=== PATIENT | female | born 1965 | race Caucasian/White ===

== ENCOUNTER → 2017-02-27 | Outpatient (CLI) | payer MEDICARE ==
[~2017-02-27] MED LIST: ALIGN4 MG PO; ARIPIPRAZOLE10 MG PO; ASPIRIN LO-DOSE81 MG PO; CALAN SR GENER120 MG PO; DIETHYLPROPION75 MG PO; DIFLUCAN150 MG PO; DIOVAN80 MG PO; FLONASE 50 MCG/16 GM NOSE; GLUCOPHAGE XR500 M1 PO; KLONOPIN1 MG PO; LANTUS100 UNIT/1 SUB-Q; LASIX40 MG PO; LEVOTHROID (SY88 MCG PO; LIPITOR80 MG PO; MAG-OX-400(241400 MG PO; NOVOLOG100 UNIT/M SUB-Q; OXCARBAZEPINE300 MG PO; QUETIAPINE FUMA50 MG PO; TRANDATE OR NO100 MG PO; VALSARTAN-HCTZ1 EAC1 PO; ZOLOFT100 MG PO; ZYLOPRIM300 MG PO; [UNRECOGNIZED DRUG - REMARK]
--- NOTE | ~2017-02-27 | ESTC ---
Cardiac Perfusion Imaging Demographics Patient Name SEGUNDO Tirado Gender Female Patient Number [id number] Race Visit Number [id number] Ethnicity Corporate ID Room Number Accession Number [id number] Height Date of 1965 Weight Age 52 year(s) BSA Referring Physician Mae Eisenberg BMI MD Brody Viveros MD Interpreting Mae Eisenberg Date of study 02/27/2017 Physician Supervising /MLP NM Technologist Burke Morales Ordering Physician Mae Eisenberg Stress Saeid Viveros MD financial services technician Giancarlo Torre RDCS, RVT Stress ECG Reading Mae Eisenberg Nurse Moe Cruz Physician Procedure Procedure Type: Nuclear Stress Test:Exercise, Cardiolite Stress Test Procedure Start time: 02/27/2017 08:30 Indications: Shortness of breath. Risk Factors The patient risk factors include:obesity, treated hypercholesterolemia, treated hypertension, insulin treated diabetes mellitus and dyslipidemia. Conclusions Summary No TID. Medium sized area of ischemia of moderate degree involving the inferior wall. Normal EF and WM. Stress Protocols Resting ECG RSR. Pre-stress physical exam: Un changed. Stress Protocol:Exercise Peak HR:140 bpm HR/BP product:72991 Peak BP:218/103 mmHg Predicted HR: 168 bpm % of predicted HR: 83 Test duration:05:00 min Reason for termination:Target heart rate ECG Findings No ECG changes suggestive of ischemia. Arrhythmias No rhythm abnormality. Stress Interpretation She had a little chest pain towards the last 30 seconds on the treadmill that lasted 30seconds into recovery. Reason for termination:Fatigue and SOB. DTS:1.(Moderate risk) Imaging Results Applied corrections - Motion correction applied High risk findings Summed scores - Summed stress score: 12 - Summed rest score: 0 - Summed difference score: 12 Stress ejection Ejection fraction:74 % EDV :68 ml ESV :18 ml Stroke volume :50 ml LV mass :110 gr LV size:Normal Normal LV function Imaging Protocols Rest Stress Isotope:Tc99m Sestamibi IV Isotope: Tc99m Sestamibi IV Isotope dose:14.6 mCi Isotope dose:929 mCi Date:02/27/2017 07:01 Date:02/27/2017 09:29 Technique: SPECT Technique: Gated Supine SPECT Supine Scan Time:45-60 minutes post Scan Time:45-60 minutes post injection injection Medical History Admission Data Admission date: 02/27/2017 Admission Time: 06:47 Hospital Status: Outpatient. Signatures dtt: Faina Wall dtd: 02/27/17 0830 Physician Self Edit
== END | disposition disaster alternative care site (69) ==
LOC: GRAD 06:47
DX: R06.02 Shortness of breath (principal); E11.9 Type 2 diabetes mellitus without complications
CPT/HCPCS: A9500

== ENCOUNTER 2017-03-11 10:56 | Outpatient (CLI) | payer MEDICARE ==
[~2017-03-11] VITALS: Ht 160 cm; Wt 109.9 kg
--- NOTE | ~2017-03-11 | CATH ---
Cardiac Diagnostic Report Demographics Patient Name SEGUNDO Tirado Gender Female Date of 1965 Age 52 year(s) Patient Number [id number] Date of Study 03/11/2017 Visit Number [id number] Room Number G63[address] [place] [id number] Ht 160.02 cm Wt 109.1 kg Referring Brody Viveros MD Primary Physician Physician Performing Mae Secondary Physician Physician Faina ADAM Diagnostic Mae Assisting Physician Physician Faina ADAM Interventional Physician Station Captain Physician Findings and Conclusions Diagnostic Findings and Conclusion LVEDP 34 Luminal Irregularities Diagnostic Recommendations Medical Therapy. Procedure Description The patient was brought to the diagnostic cardiac catheterization-EP laboratory in the fasting, non-sedated state. Informed consent was obtained in the written and verbal form after the risks and benefits were explained. The patient had no further questions and agreed to proceed. The planned puncture-incision site(s) were shaved and prepped with ChloraPrep and draped in the usual sterile manner. Conscious sedation, supplemental oxygen, and pain control medications were delivered by a registered nurse under physician guidance. Surface ECG rhythm, blood pressure measurement, and pulse oximetry were monitored throughout the procedure. Arterial access. The access site was infiltrated with lidocaine. The vessel was entered with the Seldinger technique. A sheath was advanced into the vessel and used for catheter placement. Selective left coronary angiography. A catheter was advanced into the left coronary vessel ostium under Fluoroscopic guidance. Contrast was injected by hand. Images were obtained in multiple projections. Selective right coronary angiography. A catheter was advanced into the right coronary vessel ostium under fluoroscopic guidance. Contrast was injected by hand. Images were obtained in multiple projections. Left heart catheterization. A catheter was advanced across the aortic valve to the left ventricle under fluoroscopic guidance. Resting hemodynamics were obtained. Arterial artery hemostasis was achieved. The patient was transferred to a regular nursing floor via cart accompanied by a nurse. The patient left the laboratory in stable condition. Diagnostic Cath Status: Elective Procedure Procedure Type Diagnostic procedure:Angiography:, Coronary Angios w/[facility] Indications: Positive nuclear perfusion study and Shortness of breath. The procedure was explained in detail to the patient. Risks, complications and alternative treatments were reviewed. Written consent was obtained. Medications Reviewed with Patient prior to Procedure. Angiographic Findings Dominance: Right Cardiac Arteries and Lesion Findings LMCA: Abnormal.Luminal irregularities LAD: Normal (0% Stenosis).Type I The 1st Diag is a small caliber vessel. The 2nd Diag is a small caliber vessel. LCx: Abnormal.Luminal irregularities RCA: Abnormal.Luminal irregularities Procedure Data Procedure Date Date: 03/11/2017Start: 01:20 PMEnd: 01:52 PM Entry Locations - Retrograde Percutaneous access was performed through the Right Femoral artery (Primary location). A 7 Fr sheath was inserted. Hemostasis was successfully obtained using Perclose ProGlide ([place]). Closure Comments: closure done by Eulalio. Procedure Medications Order and Administration + + + + + !Time !Medication !Dosage !Route ! + + + + + 03/11/2017 01:13 PM !Versed !1 mg !I.V. ! + + + + + 03/11/2017 01:16 PM !Fentanyl !25 mcg !I.V. ! + + + + + 03/11/2017 01:19 PM !Versed !1 mg !I.V. ! + + + + + !03/11/2017 01:19 PM !0.9% NaCl !20 ml/hr !I.V. drip ! + + + + + !03/11/2017 01:22 PM !Fentanyl !25 mcg !I.V. ! + + + + + !03/11/2017 01:27 PM !Oxygen !2 l/min !NC ! + + + + + Devices Used - A6 Fr. BS JR 4 Diag. Catheterwas used for:Right coronary angiography. - A6 Fr. BS JL 4 Diag. Catheterwas used for:Left coronary angiography. - A6 Fr. BS JL 3.5 Diag. Catheterwas used for:Was not used. Contrast Material - Isovue 62371 ml Fluoroscopy Time: Diagnostic: 3:30 minutes. Total: 3:30 minutes. Fluoroscopy Dose: Diagnostic: 987 mGy. Total: 987 mGy. Estimated Blood Loss: 25 ml. Medical History Performed Procedures and Imaging Results - Stress testing with SPECT MPIwas performed. Results were: Positive. Risk/Extent of ischemia was: Unavailable. Allergies - Penicillin. - Other:(lansoprazole, doxycycline, sporonolactone, proton pump inhibitors). Risk Factors The patient risk factors include:hypertension, insulin-treated diabetes mellitus and dyslipidemia. Admission Data Admission Date: 03/11/2017 Admission Time: 10:56 AM Admit Source: Other Insurance Payors: Medicare. Admission Medications + +------+------+ + + + + !Medication !Dosage!Times !Last !Last !Administered !Comments ! ! ! !Per !Delivery !Delivery ! ! ! ! ! !Day !Date !Time ! ! ! + +------+------+ + + + + !Beta ! ! ! ! !Yes ! ! !Ceasar ! ! ! ! ! ! ! !(any) ! ! ! ! ! ! ! + +------+------+ + + + + !Statin ! ! ! ! !Yes ! ! !(any) ! ! ! ! ! ! ! + +------+------+ + + + + Clinical Evaluation Leading to Procedure - There were no CAD presentation symptoms. - There were no anginal symptoms. Anti-anginal medications were prescribed during the past two weeks. The medication is: Beta Blockers. - The patient has been in a state of heart failure within the past two weeks. - The patient's heart failure status was assessed as NYHA Class III, with CHF symptoms of HAN. Hemodynamics Condition: Rest O2 Consumption: Estimated: 211.28Heart Rate: 80 bpm Pressures (mmHg) +-----+ + !Site !Pressure ! +-----+ + !LV !191/12 ,33 ! +-----+ + !LV !191/12 ,34 ! +-----+ + !AO !187/87 (130) ! +-----+ + !LV !189/12 ,30 ! +-----+ + !AO !191/89 (131) ! +-----+ + Valve Gradients and Areas + +---------+---------+---------+ +---------+ + !Valve !Peak !Mean !Area !Index !Flow !Source ! + +---------+---------+---------+ +---------+ + !Aortic !2 !0 ! ! ! ! ! + +---------+---------+---------+ +---------+ + !Aortic !2 !0 ! ! ! ! ! + +---------+---------+---------+ +---------+ + Shunts Oxygen Values O2 Consumption 211.28 Discharge Data Discharge Date: 03/11/2017 Hospital Status: Outpatient Signatures dtt: Faina Wall dtd: 03/11/17 1320 Physician Self Edit
[~2017-03-11 10:56] MED LIST changes: -ASPIRIN LO-DOSE81 MG PO; -CALAN SR GENER120 MG PO; -DIFLUCAN150 MG PO; -DIOVAN80 MG PO; -MAG-OX-400(241400 MG PO; -ZYLOPRIM300 MG PO; -[UNRECOGNIZED DRUG - REMARK]
[2017-03-11] MEDS ORDERED: ASPIRIN LO-DOSE81 MG PO (14:09)
[2017-03-11] MEDS ORDERED: CALAN SR GENER120 MG PO (14:10)
--- NOTE | 2017-03-11 20:30 | NUR ---
PATIENT DISMISSED VIA WHEEL CHAIR TO AWAITING PICKUP ACCOMPANIED BY MYSELF AND I ASSISTED PATIENT INTO VEHICLE. DISMISSAL INSTRUCTIONS AND MEDICATIONS WERE REVIEWED WITH PATIENT AND HER WITH STATED UNDERSTANDING. VITALS STABLE. REINFORCED CARE FOR GROIN AFTER HEART CATH AND WHAT TO DO IF SIGHT STARTS TO BLEED.
== END 2017-03-11 16:34 | disposition disaster alternative care site (69) ==
LOC: GPCU 10:56 → GCAT 10:56 → GPOC 11:00 → GCAT 16:34
DX: R06.02 Shortness of breath (principal); R94.39 Abnormal result of other cardiovascular function study; I10 Essential (primary) hypertension; E11.9 Type 2 diabetes mellitus without complications; E78.5 Hyperlipidemia, unspecified; Z79.4 Long term (current) use of insulin; Z79.899 Other long term (current) drug therapy
CPT/HCPCS: C1760; C1894; J1644; J2250; J3010; J7030; J7060

== ENCOUNTER 2017-07-26 17:30 | Inpatient (IN) | payer MEDICARE ==
[~2017-07-26] VITALS: Ht 160 cm; Wt 115.3 kg
--- NOTE | ~2017-07-26 | ECHO ---
Transthoracic Echocardiography Report (TTE) Demographics Patient Name LUH RAYMOND Date of Study 07/29/2017 Patient Number [id number] Visit Number [id number] Date of 1965 Room Number G3317 Accession Number [id number] Gender Female Age 52 year(s) Referring Ze Rico BUTCHERETTE Lining Caser Sarahi Solorio RVT, Physician RDCS Physician Interpreting Misael Aceves Cover Creaser Physician MD Supervising Ordering Physician Alli Julien MD/MLP Nurse Stress Bulk Sealer Operator Conclusions Contractility Score Summary Normal Left Ventricular contractility was noted. Summary Technically difficult exam. Normal LV/RV size and systolic function. The estimated left ventricular ejection fraction is 55-60%. Mild concentric left ventricular hypertrophy. Diastolic flow assessment reveals a pseudonormal pattern consistent with Grade II diastolic dysfunction . The left atrium is mildly dilated. Dilated IVC with poor inspiratory collapse consistent with elevated RA pressure. There is mild pulmonary hypertension. The pulmonary pressure (RVSP) is 44 mmHg. Small posterior pericardial effusion. Procedure Type of Study TTE procedure:2D Echocardiogram. Procedure Date Date: 07/29/2017 Start: 08:48 AM Study Location: Inpatient Portable Technical Quality: Adequate visualization Indications:Shortness of breath. Appropriate Use Criteria: 8 Patient Status: Routine Rhythm: NSR HR: 79 bpm BP: 163/73 mmHg Allergies - Penicillin. - Other:(lansoprazole, doxycycline, sporonolactone, proton pump inhibitors). M-Mode/2D Measurements LV Diastolic Dimension: 3.89 cm LV Systolic Dimension: 3.44 cm LV Septum Diastolic: 1.33 cm LV PW Diastolic: 1.28 cm AO Root Dimension: 2.2 cm Cardiac Output: 6.47 l/min LA Dimension: 4.3 cm EF Estimated: 55 % LVOT: 2 cm LVOT VTI: 26.1 cm RV Base: 3.41 cm LV Stroke volume: 81.95 ml RV Length: 6.68 cm TAPSE: 2.69 cm TDI-S': 13.4 cm/s Doppler Measurements AV Peak Velocity: 1.69 m/s MV Peak E-Wave: 1.27 m/s AV Peak Gradient: 11.42 mmHg MV Peak A-Wave: 0.56 m/s AV Mean Gradient: 7 mmHg MV E/A Ratio: 2.26 LVOT Peak Velocity: 1.28 m/s MV P1/2t: 43 msec TR Gradient:35.76 mmHg PV Peak Velocity: 1.02 m/s Estimated RAP:8 mmHg PV Peak Gradient: 4.16 mmHg Estimated RVSP: 44 mmHg Estimated PASP: 43.76 mmHg E' Septal Velocity: 0.1 m/s A' Septal Velocity: 0.06 m/s E' Lateral Velocity: 0.12 m/s A' Lateral Velocity: 0.09 m/s Findings Left Ventricle Mild concentric left ventricular hypertrophy. Diastolic assessment reveals Grade II pseudonormal diastolic function . Right Ventricle Normal right ventricle structure and function. Left Atrium The left atrium is mildly dilated. There is no evidence of patent foramen ovale or atrial septal defect by color Doppler. Right Atrium Normal right atrial size. Dilated IVC with poor inspiratory collapse consistent with elevated RA pressure. Mitral Valve Trivial mitral regurgitation by color Doppler. Mild mitral annular calcification. Mild thickening of the mitral valve leaflets. Aortic Valve Normal aortic valve structure and function. Tricuspid Valve Trivial tricuspid regurgitation by color Doppler. There is mild pulmonary hypertension. The pulmonary pressure (RVSP) is 44 mmHg. Pulmonic Valve Normal pulmonic valve structure and function. Pericardial Effusion Small posterior pericardial effusion. Miscellaneous Visualized portions of the aortic root and ascending aorta appear normal in size. Pleural Effusion No evidence of pleural effusion. Contractility Score LV regional wall motion:(0-Non visualized 1-Normal 2-Hypokinesis 3-Akinesis 4-Dyskinesis 5-Aneurysm) Signature dtt: PATTIE WHITE: 07/29/17 0848 Physician Self Edit
--- NOTE | ~2017-07-26 | DS ---
PATIENT'S NAME: LUH RAYMOND [facility] AGE: 52 Y [address] ROOM: [place] [address] LOCATION: [facility] ADMIT DATE: 07/26/2017 Discharge Summary DISCHARGE DATE: FAMILY PHYSICIAN: Physician, Unknown ATTENDING PHYSICIAN: Jacky Kunz PRINCIPAL DIAGNOSES: 1. Acute kidney injury. 2. Aspiration pneumonia. 3. Volume overload. 4. Type 2 diabetes. 5. Morbid obesity. HOSPITAL COURSE: Please refer to the admitting history and physical for details of history on initial presentation. This is a 52-year-old female, who was transferred from [place] for evaluation of worsening renal failure. The patient apparently presented at [place] with gastroenteritis type symptoms and was given plenty of volume resuscitation. Despite this, she was noted to have worsening kidney function, and then was transferred for workup of her renal failure. On presentation, the patient was noted to be significantly volume overloaded with significant weight gain and clinical indicators suggesting volume overload and was given IV Lasix with good diuresis, and subsequently kidney function improved from 2 and it is down to 1.2 today, and the patient is making good urine. The patient was also diagnosed with aspiration pneumonia, which was related to her nausea and vomiting that led to her initial presentation. The patient is doing well from that standpoint, and she needs to finish her antibiotics course with Levaquin going forward. PHYSICAL EXAMINATION: GENERAL: The patient during my evaluation today is awake, alert, and oriented x3, in no acute distress. HEART: S1 and S2. Regular rate and rhythm. ABDOMEN: Soft, nontender, nondistended. CHEST: Clear to auscultation bilaterally. NEURO: Grossly nonfocal. MEDICATIONS: Per MAR includin. Levaquin 750 mg p.o. daily for 6 more days. 2. She is to continue p.o. Lasix 40 mg daily. DISPOSITION: Home. FOLLOWUP: She will follow up with her primary care physician in 3 to 5 days and will have repeat renal panel at that time. Less than 30 minutes were spent in discharge planning and facilitating. PATIENT'S NAME: LUH RAYMOND [facility] AGE: 52 Y [address] ROOM: [place] [address] LOCATION: [facility]3N ADMIT DATE: 07/26/2017 Discharge Summary DISCHARGE DATE: FAMILY PHYSICIAN: Cassie Soto ATTENDING PHYSICIAN: Jacky Kunz JETHROOT MD SHADY VILLANUEVA/vazquez /[id number] d: 07/29/17 0244 t: 07/31/17 1401, DISCHARGE SUMMARY
--- NOTE | ~2017-07-26 | HP ---
PATIENT'S NAME: LUH RAYMOND [facility] AGE: 52 Y [address] ROOM: [id number] [place], [place] [address] LOCATION: G3N ADMIT DATE: 07/26/2017 History & Physical DISCHARGE DATE: FAMILY PHYSICIAN: PHYSICIAN, UNKNOWN ATTENDING PHYSICIAN: ROSA BROWN DATE OF SERVICE: 07/26/2017 CHIEF COMPLAINT: Acute renal failure, transferred from [place], [place]. HISTORY OF PRESENT ILLNESS: This is a very pleasant 52-year-old female with past medical history of insulin-dependent diabetes complicated by neuropathy and probable nephropathy, also with morbid obesity and question of possible congestive heart failure, who presented on July 23 to [facility] with a chief complaint then of "dehydration." The patient had noted recent nausea, vomiting, abdominal pain, and decreased oral intake and noted a presyncopal spell versus syncopal spell. History on this is un clear just prior to her presentation to the outside hospital. In addition, she had noted a recent cough and workup showed pneumonia, which was classified at the outside hospital as an aspiration pneumonia and the patient was started on Levaquin. She did well initially. However, throughout the course of her stay in spite of IV fluid rehydration, her creatinine went from 0.9 to as high as 2.3, now down to 1.8, however, given the difficulty with this and failure to improve with fluids, it was felt best to transfer the patient to [facility]. The patient notes that her nausea, vomiting, and abdominal pain are much improved as is her cough. She denies any recent fevers including prior to her presentation, also without any chills, chest pain, ongoing shortness of breath, abdominal pain, dysuria, or bowel concerns. She does note that she had struggled to urinate over the last 1 to 2 days, prompting straight cath initially and subsequently Ardon placement for urinary retention. Just prior to transfer, labs were notable for concerning potassium of 5.7 up from 4.7 yesterday, creatinine of 1.8 up from 1.6 yesterday with BUN of 40, and the patient was discussed with Dr. Mo by Dr. Skinner in [place] and it was suggested to give the patient bicarb and D5 half-normal saline and as this did not improve creatinine, transfer was prompted. The patient, as stated above, denies any new concerning complaints now aside from progressive upper and lower extremity pronounced edema bilaterally as well as new oxygen requirement of 1 to 2 L. PAST MEDICAL HISTORY: 1. Insulin-dependent diabetes type 2. Follows with Endocrinology. 2. Neuropathy secondary to diabetes. 3. CKD secondary to diabetes. 4. Recurrent UTIs in the past. PATIENT'S NAME: LUH RAYMOND [facility] AGE: 52 Y [address] ROOM: [place] [address] LOCATION: [facility] ADMIT DATE: 07/26/2017 History & Physical DISCHARGE DATE: FAMILY PHYSICIAN: PHYSICIAN, UNKNOWN ATTENDING PHYSICIAN: ROSA BROWN 5. Bipolar disorder. 6. Morbid obesity. 7. Chronic lower extremity edema. Prior to of all this, follows with Dr. Hart 8. Hypothyroidism. 9. History of coronary artery disease by review of chart, though heart catheterization in March of this year does not appear to show significant residual disease. 10. History of gout. PAST SURGICAL HISTORY: History of cholecystectomy several years ago. FAMILY HISTORY: Father had "kidney troubles" and was placed on HD for some period of time, still living at this point. SOCIAL HISTORY: The patient denies any alcohol, tobacco, or illicit drug use. ALLERGIES: THE PATIENT NOTES THAT PENICILLINS AND DOXYCYCLINE INDUCED A RASH AND PRILOSEC INDUCES VAGUE GI DISCOMFORT. MEDICATIONS: 1. Just prior to transfer, the patient was transitioned from Levaquin to Rocephin given concern that Levaquin may be inciting some of her acute kidney injury. 2. Zoloft. 3. Abilify. 4. Seroquel. 5. Trileptal. 6. Aspirin. 7. Allopurinol. 8. Valsartan. 9. Labetalol. 10. Lantus 60 units b.i.d. 11. Lipitor. 12. Lasix. 13. Metformin. 14. Synthroid. 15. Verapamil. REVIEW OF SYSTEMS: Complete review of systems was able to be performed and is negative except as noted above in the HPI. PATIENT'S NAME: LUH RAYMOND [facility] AGE: 52 Y [address] ROOM: [place] [address] LOCATION: [facility] ADMIT DATE: 07/26/2017 History & Physical DISCHARGE DATE: FAMILY PHYSICIAN: PHYSICIAN, UNKNOWN ATTENDING PHYSICIAN: ROSA BROWN PHYSICAL EXAMINATION: VITAL SIGNS: The patient is afebrile with pulse in the 80s, blood pressure 140 systolic, respirations 20, and saturating well on 1 to 2 L of oxygen via nasal cannula. GENERAL: The patient is lying comfortably in bed, in no acute distress. HEENT: Head: Normocephalic and atraumatic with nasal cannula oxygen in place. Eyes: Pupils equal, round, and reactive to light. Extraocular muscles intact. No scleral icterus. No conjunctival injection. ENT: Mucous membranes are moist. No nasal discharge appreciated. NECK: Supple. JVD not assessable due to neck size. No thyromegaly appreciated nor is there any lymphadenopathy. CARDIOVASCULAR: Regular rate and rhythm without murmurs appreciable though the heart sounds are distant with 2+ pulses bilaterally in the upper and lower extremities. RESPIRATIONS: Lungs with bibasilar rhonchi, otherwise clear with normal respiratory effort requiring as mentioned oxygen via nasal cannula. ABDOMEN: Morbidly obese, soft, and nontender without suprapubic tenderness or CVA tenderness. : Ardon catheter in place. EXTREMITIES: 2+ pitting edema bilaterally in the upper and lower extremities. SKIN: Without appreciable lesions. NEUROLOGIC: The patient is alert and oriented x3. Pleasant and conversive. PSYCH: Normal mood and affect currently. LABS AND IMAGING: Currently pending here are labs which were ordered upon the patient's arrival. However, outside labs note CBC, white count 6.1, hemoglobin 11.1, and platelets 128. BMP: Sodium 140, potassium 5.7, bicarb 24, BUN 40, and creatinine 1.8. Troponin negative. EKG reportedly without changes of hyperkalemia. Remainder of LFT panel was normal. ASSESSMENT: 1. Acute renal failure. 2. Acute hypoxic respiratory failure. 3. Volume overload. 4. Insulin-dependent diabetes type 2. 5. Recent reported aspiration pneumonia by chest x-ray. 6. Recent gastroenteritis, resolved. 7. Hypothyroidism. 8. Bipolar disorder. PLAN: We will admit the patient to inpatient status with telemetry. As the patient PATIENT'S NAME: LUH RAYMOND [facility] AGE: 52 Y [address] ROOM: [address] [place], [place] [address] LOCATION: [facility] ADMIT DATE: 07/26/2017 History & Physical DISCHARGE DATE: FAMILY PHYSICIAN: PHYSICIAN, UNKNOWN ATTENDING PHYSICIAN: ROSA BROWN is grossly volume overloaded on exam, we will, in spite of acute renal failure, diurese with 60 of IV Lasix tonight and monitor response, maintaining Ardon in place for accurate I's and O's. Given the patient's history of allergic reactions to penicillins and doxycycline and the concern that potentially there may be an acute interstitial nephritis as a component of her ZACHARY, we will discontinue Rocephin and revert to previously used Levaquin renally dosed per pharmacy. This will be to complete a five-day course for community-acquired pneumonia. Today is day four. We will hold nephrotoxic medications to include valsartan, metformin, allopurinol, and verapamil. We will check chest x-ray now to assess for additional fluid as well as to assess the degree of previously diagnosed pneumonia as the patient was with mild symptoms and without fevers throughout this time. With regard to her diabetes, we will continue her home insulin and hold metformin as mentioned above. With regard to her bipolar disorder, we will continue Zoloft, Abilify, Seroquel, and Trileptal. We will add on urine studies to further evaluate including UA, urine urea, urine creatinine, and urine eosinophils and we will await repeat labs on arrival here to determine need for intervention upon possible recurrent hyperkalemia. I have also ordered an EKG to further evaluate this. The patient is a full code. DVT prophylaxis. We will use heparin 5000 subcu t.i.d. in the setting of acute renal failure. DISPOSITION: We will admit and monitor progress. Consider renal consultation should the patient fail to improve. Also consider transthoracic echocardiogram, though at this point would expect to be abnormal secondary to volume overload. I spent 35 minutes on date of admission, reviewing the outside medical records as well as [id number] time with the patient. MD DMITRIY COLLINS/modl /[id number] D: [id number] T: [id number] HISTORY & PHYSICAL
--- NOTE | ~2017-07-26 | DS ---
PATIENT'S NAME: LUH RAYMOND [facility] AGE: 52 Y [address] ROOM: [place] [address] LOCATION: G3N ADMIT DATE: 07/26/2017 Discharge Summary DISCHARGE DATE: 07/30/2017 FAMILY PHYSICIAN: Sandeep Skinner MD ATTENDING PHYSICIAN: Jacky Kunz PRINCIPAL DISCHARGE DIAGNOSIS: Acute kidney injury. SECONDARY DIAGNOSES: 1. Aspiration pneumonia. 2. Diabetes mellitus type 2, uncontrolled. 3. Hyperglycemia. 4. Hypomagnesemia. 5. Morbid obesity. 6. Grade 2 diastolic dysfunction. 7. Diastolic heart failure. 8. Mild pulmonary hypertension with right ventricular systolic pressure of 44 mmHg. 9. Hypothyroidism with normal TSH of 2.13 on the day of discharge. 10. Hypercholesterolemia. CONSULTATIONS: None. PROCEDURES: Echocardiogram. BRIEF SUMMARY OF RESULTS: Technically difficult exam, estimated left ventricular ejection fraction 55% to 60%. There is mild concentric left ventricular hypertrophy and grade 2 diastolic dysfunction, pseudonormal pattern. Left atrium mildly dilated and dilated IVC with poor inspiratory collapse consistent with elevated right atrial pressures, mild pulmonary hypertension with right systolic ventricular pressure of 44 mmHg. Small posterior pericardial effusion. BRIEF SUMMARY: Ms. Raymond is a 52-year-old female who has insulin- dependent diabetes mellitus complicated by nephropathy. The patient had developed acute illness with nausea, vomiting, abdominal pain. She reportedly was presyncopal. In addition, she was coughing. She was being treated for aspiration pneumonia in outlying hospital. She developed a creatinine which went from a baseline 0.9 to 2.3 and was down to 1.8 on admission to our hospital. She was transferred here for more evaluation and treatment. She had an episode of hypoglycemia on the 07/26/2017 and her insulin was held except for sliding scale. She has become more hyperglycemic since then. We obtained hemoglobin A1c which showed that it was 8.4 which indicates an average glucose of 194. In this past 24 hours, her glucoses have been above PATIENT'S NAME: LUH RAYMOND [facility] AGE: 52 Y [address] ROOM: [place] [address] LOCATION: G3N ADMIT DATE: 07/26/2017 Discharge Summary DISCHARGE DATE: 07/30/2017 FAMILY PHYSICIAN: Sandeep Skinner MD ATTENDING PHYSICIAN: Jacky Kunz 300. Resume a dose of basal insulin now and put her on her home insulin regimen at discharge and refer her to an wireless architect. There is 1 in [place] if she would be able to see her. The echocardiogram showed diastolic dysfunction and mild pulmonary hypertension. We are suspecting obesity, hypoventilation versus obstructive sleep apnea. A trend ox last night showed significant hypoxia with greater than 50% of the time saturation being below 89% and greater than 86% at the time, it was less than 90% of SpO2. She will be sent home on liter of oxygen per nasal cannula for 24 hours and increasing that to 2 L with ambulation as she also was noted to be hypoxic with ambulatory pulse ox testing this morning. She will be sent to see Dr. Pisano for pulmonary evaluation which will likely include PFTs and we will try to schedule her for sleep study prior to discharge. INSTRUCTIONS AT DISCHARGE: 1. Low-sodium diet, diabetic diet. 2. Walk as tolerated. She should walk at least 15 minutes in the morning and in the p.m. as well. 3. Followup appointment with her PCP in the next 3 to 5 days. I will give her referral to go to see Jyothi Moreno, [facility] for diabetes management and appointment with Dr. Pisano as above. MEDICATIONS AT DISCHARGE: 1. Clonazepam 1 mg at bedtime. 2. Oxcarbazepine 300 mg p.o. b.i.d. 3. Lasix 40 mg q.a.m. 4. Insulin glargine 60 units subcu b.i.d. 5. NovoLog 25 units subcu with breakfast and noon meal. 6. NovoLog 30 units subcu with her evening meal. 7. Labetalol 100 mg p.o. b.i.d. 8. Levothyroxine 88 mcg p.o. daily on an empty stomach. 9. Quetiapine 50 mg at bedtime. 10. Zoloft 150 mg p.o. daily. 11. Verapamil 120 mg p.o. daily. 12. Aripiprazole 10 mg p.o. daily. 13. Aspirin 81 mg p.o. daily. 14. Lipitor p.o. at bedtime. 15. Align 4 mg p.o. daily, do not take as the same time as Levaquin. 16. She is instructed to hold her metformin until she speaks to her PCP. 17. Flonase daily. 18. Allopurinol, dose reduced to 300 mg p.o. every other day. 19. Fluconazole 150 mg p.r.n. weekly for yeast infection. PATIENT'S NAME: L[facility] RAYMOND [facility] AGE: 52 Y [address] ROOM: [place] [address] LOCATION: [facility] ADMIT DATE: 07/26/2017 Discharge Summary DISCHARGE DATE: 07/30/2017 FAMILY PHYSICIAN: Sandeep Skinner MD ATTENDING PHYSICIAN: Jacky Kunz 20. Diovan 80 mg p.o. daily. CONDITION AT DISCHARGE: Good. Time spent is greater than 30 minutes in the discharge process. CYNDI GUERIN MD LM/vazquez /[id number] d: 07/31/17 0751 t: 08/05/17 1829, DISCHARGE SUMMARY
--- NOTE | ~2017-07-26 | PUL ---
PATIENT'S NAME: LUH RAYMOND [facility] AGE: 52 Y [address] ROOM: [address] [address] LOCATION: G3N ADMIT DATE: 07/26/2017 Pulmonary DISCHARGE DATE: 07/30/2017 FAMILY PHYSICIAN: Sandeep Skinner MD ATTENDING PHYSICIAN: Jacky Kunz NAME OF PROCEDURE: Overnight Pulse Oximetry DATE OF PROCEDURE: July 29, 2017 REASON FOR PROCEDURE: Nocturnal hypoxemia RESULTS: The test was started on room air, later 1 liter oxygen was supplemented. The recording time was 7 hours, 2 minutes, and 16 seconds, with a total valid sampling time of 7 hours, 2 minutes, and 16 seconds. The highest pulse was 76, lowest pulse was 62, with a mean pulse of 66. The highest SpO2 was 92%, lowest SpO2 was 77%, with a mean SpO2 of 87.9%. The three longest continuous times with saturation below 88% where 20 minutes and 44 seconds, 14 minutes and 44 seconds, and 12 minutes and 20 seconds. The desaturation event index was 8.5. PHYSICIAN INTERPRETATION: The patient has evidence of significant nocturnal hypoxia and would qualify for supplemental oxygen as per Medicare criteria. However because of the severity of the nocturnal hypoxia we would recommended sleep study at this time. MD SHAE SANCHES/rich /[id number] dtt: 08/01/17 1731 REMI MEENAKSHI dtd: 07/31/17 1225
[~2017-07-26 17:30] MED LIST changes: +ASPIRIN LO-DOSE81 MG PO; +CALAN SR GENER120 MG PO
--- NOTE | 2017-07-26 18:59 | NUR ---
Pt has not been feeling well. Her took her to the [facility], operated by [facility] because of it. She there had urinary retention. She said since she has been there (Saturday) she has gained 22 lbs. They transferred her to [place].
[2017-07-26 19:00] LABS: BILIRUBIN URINE NEGATIVE (NEGATIVE); BLOOD URINE 150 /UL (NEGATIVE); COLOR URINE YELLOW (YELLOW); GLUCOSE URINE NEGATIVE (NEGATIVE); KETONE URINE NEGATIVE (NEGATIVE); LEUKOCYTES URINE 25 /UL (NEGATIVE); NITRITE URINE NEGATIVE (NEGATIVE); PROTEIN URINE 15 mg/dL (NEGATIVE); SPEC GRAVITY URINE 1.015 (1.003-1.035); TURBIDITY URINE CLEAR (CLEAR); UROBILINOGEN URINE NORMAL (NORMAL)
--- NOTE | 2017-07-26 19:11 | NUR ---
Significant Event: Admit at 1750. Ambulates with one assist and gaitbelt. Ardon patent, bag changed. Denies pain. Edema to all extremeties. IV to R) AC saline locked. Follow up:
[2017-07-26 19:23] LABS: BASOPHIL % 0.3 %; EOSINOPHIL # 0.1 K/uL (0.0-0.5); EOSINOPHIL % 1.7 %; HEMATOCRIT 33.6 % (33.0-46.0); HEMOGLOBIN 10.5 g/dL (10.0-15.0); IMMATURE GRANULOCYTE % 0.2 %; LYMPHOCYTE # 0.8 K/uL (0.8-4.0); LYMPHOCYTE % 13.2 %; MCH 29.1 pg (27.0-34.0); MCHC 31.3 gm/dL (32.0-36.5); MCV 93.1 fl (83.0-98.0); MONOCYTE # 0.3 K/uL (0.0-1.0); MONOCYTE % 5.7 %; MPV 10.6 fl (9.4-12.4); NEUTROPHIL # (ANC) 4.5 K/uL (1.8-7.8); NEUTROPHIL % 78.9 %; NRBC % 0 /100WBC (0-0.00); PLATELET COUNT 127 K/uL (150-450); RBC 3.61 M/uL (3.50-5.50); RDW-CV 14.9 % (11.9-14.6); WBC 5.7 K/uL (4.0-11.0)
[2017-07-26 19:30] LABS: BACTERIA URINE RARE (NEGATIVE); EPITHELIAL URINE 0-2 #/HPF (NEGATIVE)
[2017-07-26] MEDS ORDERED: ZYLOPRIM300 MG PO (19:32)
[2017-07-26] MEDS ORDERED: DIFLUCAN150 MG PO (19:33)
[2017-07-26] MEDS ORDERED: DIOVAN80 MG PO (19:34)
[2017-07-26 19:40] LABS: ANION GAP 8.8 (10.0-19.0); CALCIUM 7.9 mg/dL (8.5-10.5); CREATININE 1.6 mg/dL (0.5-1.1); POTASSIUM 4.8 mMol/L (3.7-5.1); TOTAL BILIRUBIN 0.2 mg/dL (0.0-1.5); TOTAL PROTEIN 6.3 g/dL (6.0-8.4)
--- NOTE | 2017-07-26 19:55 | NUR ---
Patient is 52 yo female admitted this evening from [facility] where patient states she has been a patient since Saturday. states she has pneumonia. patient does have hx of dementia. Seems fairly alert at this time and answers questions without much difficulty. patient does have a vazquez. states she came with one in and it was changed here after she was admitted here. patients appears to not feel well at this time although continues to answer questions. education is given as documented. patient denies questions at this time. pneumatics are on bilat feet. pt jose luis well. call light is within reach. patient denies needs. med reconciliation is completed from list sent from [place]. Report is given to KAROL Posada.
--- NOTE | 2017-07-27 04:36 | NUR ---
Significant Event: Earlier in shift, was disoriented to time. At 0430, patient more alert/ oriented x3, more talkative. VSS more stable, hypertensive early in shift, SBPs 160s-170s, last 140. 2 LPM O2 per nasal cannula, humidified. Accucheck at 2100 was 41, order from Dr Manriquez for 1 amp D5, accucheck at 2230 149, order for accuchecks Q2H x4 - 95 at 0015, 79 at 0230, 85 at 0430. Will do the 4th at 0630. Saline lock in right AC. 4+ edema throughout, skin tight. Ardon catheter patent - drained out 2150 mls yellow urine, little film early in shift, then cleared. Levaquin IV x1 given, will be on Levaquin PO. Pt stated at 0430 that she was feeling better. Fluid restricted - 1500 mls/ daily - 900 for day shift. Follow up:
[2017-07-27 07:59] LABS: BASOPHIL % 0.6 %; EOSINOPHIL # 0.1 K/uL (0.0-0.5); EOSINOPHIL % 2.3 %; HEMATOCRIT 35.6 % (33.0-46.0); HEMOGLOBIN 11.2 g/dL (10.0-15.0); IMMATURE GRANULOCYTE % 0.3 %; LYMPHOCYTE # 0.6 K/uL (0.8-4.0); LYMPHOCYTE % 17.5 %; MCH 28.9 pg (27.0-34.0); MCHC 31.5 gm/dL (32.0-36.5); MONOCYTE # 0.2 K/uL (0.0-1.0); MONOCYTE % 4.5 %; MPV 10.9 fl (9.4-12.4); NEUTROPHIL # (ANC) 2.7 K/uL (1.8-7.8); NEUTROPHIL % 74.8 %; NRBC % 0 /100WBC (0-0.00); PLATELET COUNT 114 K/uL (150-450); RBC 3.87 M/uL (3.50-5.50); WBC 3.5 K/uL (4.0-11.0)
[2017-07-27 08:12] LABS: ANION GAP 9.2 (10.0-19.0); CALCIUM 8.4 mg/dL (8.5-10.5); CREATININE 1.2 mg/dL (0.5-1.1); POTASSIUM 4.2 mMol/L (3.7-5.1)
--- NOTE | 2017-07-27 18:31 | NUR ---
Significant Event: Ambulates with one assist and gaitbelt. Ardon patent with 900mL out this shift. Acchuchecks ACHS, mild sliding scale restarted this afternoon. Generalized edema 3-4+. C/O itching under breasts and abdominal fold, Nystatin powder ordered and applied. IV to R) AC saline locked. Follow up:
--- NOTE | 2017-07-28 03:50 | NUR ---
Significant Event: Alert/oriented x3. SBPs in 140s and 150s, on room air until RT placed O2 at 2 LPM per nasal cannula to keep sats >90%. Ardon patent - 1450 mls out. Accuchecks AC, HS - 178 at HS, 0 U Novolog per mild sliding scale. Saline lock in right AC. 4+ edema throughout, improving. Patient states she "feels better." Fluid restriction 1500 mls/daily - 900/day, 600/night. Lung sounds diminished both sides. More talkative this shift. 1 assist ambulation/transfers. Follow up:
[2017-07-28 06:28] LABS: ANION GAP 9.7 (10.0-19.0); CALCIUM 9.1 mg/dL (8.5-10.5); CREATININE 1.2 mg/dL (0.5-1.1); MAGNESIUM 1.7 mg/dL (1.8-2.6); PHOSPHORUS 2.8 mg/dL (2.5-4.9); POTASSIUM 4.7 mMol/L (3.7-5.1)
--- NOTE | 2017-07-28 14:40 | NUR ---
Significant Event: Ambulates with one assist and gaitbelt. Ardon patent, large amount urine out this shift. General edema 3-4+. Patient requested to be weighed, was 115.3 per standing scale, down from 121.2 on admission. Remains on 2L O2 per nasal cannula. Possible home saturday afternoon. Follow up:
--- NOTE | 2017-07-29 03:50 | NUR ---
Significant Event: Alert/oriented x3. 1 assist ambulation with walker and gait belt. Ardon removed yesterday, voids well per bathroom. General edema 3+ throughout, is improving, skin does not feel as tight. Telemetry, no calls. Freedom RODRIGUEZ, HS - 270 at HS - 4 U Novolog. Will have Echo later today, depending on results may go home in afternoon. Saline lock in right AC. Lung sounds diminished, improving. Desats when up moving around down into low to mid 80s. Patient states she is feeling better. Follow up:
--- NOTE | 2017-07-29 04:12 | NUR ---
1 void 350 mls credited to day shift at 0410.
[2017-07-29 05:26] LABS: ANION GAP 10.3 (10.0-19.0); CALCIUM 9.3 mg/dL (8.5-10.5); CREATININE 1.1 mg/dL (0.5-1.1); MAGNESIUM 1.5 mg/dL (1.8-2.6); PHOSPHORUS 3.2 mg/dL (2.5-4.9); POTASSIUM 4.3 mMol/L (3.7-5.1)
--- NOTE | 2017-07-29 10:10 | NUR ---
Introduced self/role to patient. She lives in [place] with her Matt. He just needs a 2 hour notice to come and get her. Denied any barriers to getting home or at home besides getting home oxygen set up. She stated that is why she wasn't able to leave yesterday. Added my name to her marker board, will follow. Will contact RT to regarding the oxygen. [id number] Called RT Elana Degroot is following patient and they have not received anything about setting up home oxygen. Spoke to patients nurse Elisabeth, she didn't know anything either. Updated charge nurse Bing about potential issues to discharge. Patient reported her family doctor was Dr Skinner, called Admissions to get this added to record.
--- NOTE | 2017-07-29 19:38 | NUR ---
Significant Event: AMBUL TO BR WITH 1 ASSIST, TOLERATES ACTIVITY FAIR, REMAINS ON 1 L O2 TO KEEP SATS UP. TO HAVE TREND OX TONIGHT, RECIEVED 2 DOSES IV MAG, AND 20 MG LASIX AT THIS AFTERNOON. LASAST ACCUCHECK WAS 392,RECIEVED 8 UNITS NOVALOG AT 1800.. Follow up:
--- NOTE | 2017-07-30 04:32 | NUR ---
Significant Event: Patient alert and oriented. Up with standby assist. Denies pain. VSS on 1-2L oxygen. Overnight trend ox this shift. Pleasant and cooperative iwth cares. Follow up: continue to monitor
[2017-07-30 06:18] LABS: ALBUMIN 3.2 gm/dL (3.5-5.0); CALCIUM 9.2 mg/dL (8.5-10.5); CREATININE 1.2 mg/dL (0.5-1.1); MAGNESIUM 2.1 mg/dL (1.8-2.6); PHOSPHORUS 2.9 mg/dL (2.5-4.9); POTASSIUM 4.3 mMol/L (3.7-5.1)
[2017-07-30 06:21] LABS: ANION GAP 11.3 (10.0-19.0)
--- NOTE | 2017-07-30 10:15 | NUR ---
Followed up with patient regarding discharge planning. She reports only need is the oxygen. Will followup on that. She plans to go home today. 1025 Called RT, they will call Dr. Carpio about the documentation they will need to go thru Medicare. Nothing further for me to do.
--- NOTE | 2017-07-30 12:08 | NUR ---
Diabetes center note: A1C was 8.4 % upon admission. Current blood sugars here 200-300, noted that her home insulin doses of Levemir 60 units BID have not been ordered here. CDE called and left a message for Marilu Smith to recommend for patient to get restarted on home insulin dose. Patient was also on Metformin at home, but given the patient has some renal function issues, this will not be restarted. Provided the patient with Diabetes Management Booklet and Survival Skills Assessment form for her to complete. Will assess educational needs.
--- NOTE | 2017-07-30 14:00 | NUR ---
Diabetes center note: 1230 Met with patient and discussed A1C of 8.4 % upon admission. Patient is eating her lunch, so just asked her a few questions. Patient states she does have an appointment with her [employer]utter in [place], [place] on this week, if she is well enough to travel that far. CDE informs patient that a recommendation was made to restart her long acting insulin, as she takes 60 units of Lantus BID at home. Blood sugars have been 200-300 here and on sliding scale only. Diabetes Management Booklet provided and asked her to complete the Diabetes Survival Skills checklist.
[2017-07-30] MEDS ORDERED: MAG-OX-400(241400 MG PO (14:22)
[2017-07-30] MEDS ORDERED: [UNRECOGNIZED DRUG - REMARK] (14:22)
--- NOTE | 2017-07-30 15:40 | NUR ---
D: PATIENT ALERT AND ORIENTED X3. UP TO CHAIR AND AMBULATES TO BATHROOM WITH SBA, USE OF GAIT BELT, O2 AT 1L/NC. O2 SAT 90% ON 1L/NC. DENIED PAIN WHEN ASKED. ACCUCHECKS 325, 359, REVIEWED NEW ORDERS. LUNG SOUNDS DIMINISHED IN ALL BASES. VSS. DISCHARGE INSTRUCTIONS REVIEWED WITH PATIENT AND , VERBALIZES UNDERSTANDING. PATIENT DISMISSED TO HOME, ASSISTED TO VEHICLE VIA W/C AND STUDENT NURSE/NURSE ASSISTANCE. O2 AT 1L/NC APPLIED.
== END 2017-07-30 15:50 | disposition disaster alternative care site (69) | DRG 682 ==
LOC: G3N 18:11
PROVIDERS: Internal Medicine; ADMIT Internal Medicine
DX: N17.9 Acute kidney failure, unspecified (principal); J69.0 Pneumonitis due to inhalation of food and vomit; J96.01 Acute respiratory failure with hypoxia; I50.30 Unspecified diastolic (congestive) heart failure; E11.40 Type 2 diabetes mellitus with diabetic neuropathy, unspecified; I27.2 Other secondary pulmonary hypertension; Z68.42 Body mass index [BMI] 45.0-49.9, adult; E83.42 Hypomagnesemia; E11.65 Type 2 diabetes mellitus with hyperglycemia; E87.70 Fluid overload, unspecified; E66.01 Morbid (severe) obesity due to excess calories; E03.9 Hypothyroidism, unspecified; E78.00 Pure hypercholesterolemia, unspecified; Z79.82 Long term (current) use of aspirin; Z87.440 Personal history of urinary (tract) infections; F31.9 Bipolar disorder, unspecified; M10.9 Gout, unspecified; I25.10 Atherosclerotic heart disease of native coronary artery without angina pectoris
CPT/HCPCS: J1644; J1940; J1956; J3475; J7050